=== PATIENT | male | born 1965 | race Caucasian/White ===

== ENCOUNTER 2018-08-08 11:38 | Emergency (ER) | payer OTHER ==
[2018-08-08 11:46] VITALS: BP 157/97
[2018-08-08] MEDS ORDERED: ACETAMINOPHEN 500 MG TAB PO ONE (11:49)
--- NOTE | 2018-08-08 11:50 | EDPHY ---
H & P Stated Complaint: pt standing on ladder approx 4 ft off ground, fell- hit back of head Time Seen by Provider: 08/08/18 11:47 HPI/ROS: HPI: This is a 53-year-old male who presents with Chief Complaint: pt standing on ladder approx 4 ft off ground, fell- hit back of head Location: Head, neck Quality: Injury Duration: Prior to arrival Signs and Symptoms: No bleeding, no radiation, no numbness, no weakness, no tingling, no incontinence, no decreased range of motion, + swelling, + pain, no fever Timing: Acute Severity: Moderate Context: Patient was in the emergency room repairing equipment while standing on a ladder. He reports that he missed the step approximately 4 ft in the air and fell directly off the ladder landing 1st on his buttocks and then hitting the back of his head. Denies LOC/dizziness/nausea/vomiting/amnesia. This was a witnessed fall and he was ambulatory at the scene. Patient has swelling noted to the back top of his head. Ice pack was applied. Patient reports no pain in his buttock or back region. He does report some mild midline discomfort in his cervical spine. Denies any cervical decreased range of motion or radiculopathy. Prior history of concussion in the past. Not on any blood thinners. Modifying Factors: Ice pack. Comment: ROS: A comprehensive 10 system review of systems is otherwise negative aside from elements mentioned in the history of present illness. MEDICAL/SURGICAL/SOCIAL HISTORY: Medical history: Generally healthy. Does not take any regular medications. Surgical history: Denies Social history: Employed. Never smoked. CONSTITUTIONAL: Well-developed, well-nourished, middle-aged white male, awake and alert, no obvious distress HEENT: 2 in annular contusion noted to the occipital area of the scalp-no skin breakdown; and normocephalic, PERRL, EOMI. no globe entrapment, no raccoon eyes. no Cueto signs.Tympanic membranes clear. No tympanic membrane rupture. Nares patent; no septal hematoma. Oropharynx clear, no exudate and moist pink mucosa. No malocclusion. no dental trauma. Airway patent. No lymphadenopathy. NECK: supple, mild C5-C7 midline tenderness, flexion 45 degrees, extension 45 degrees, right and left lateral flexion 45 degrees. No meningismus. Cardiovascular: Normal S1/S2, regular rate, regular rhythm, without murmur rub or gallop. PULMONARY/CHEST: Symmetrical and nontender. no crepitus. Clear to auscultation bilaterally. Good air movement. No accessory muscle usage. ABDOMEN: Soft, nondistended, nontender, no ecchymosis, no rebound, no guarding , no peritoneal signs, no masses or organomegaly. No CVAT. PELVIC: no pain with rocking; bilateral hips flexion 125 degrees, extension 30 degrees, with no pain internal rotation and no pain external rotation. BACK: No midline tenderness, no paraspinous spasm, deep tendon reflexes 2/2, no pain with straight leg raise EXTREMITIES: 2/2 pulses, no deformities, no clubbing, no cyanosis or edema. NEUROLOGICAL: no focal neuro deficits. GCS 15. SKIN: Warm and dry, no erythema. no rash. Good capillary refill. Source: Patient Exam Limitations: No limitations - Personal History Current Tetanus Diphtheria and Acellular Pertussis (TDAP): Yes - Medical/Surgical History Hx Asthma: No Hx Chronic Respiratory Disease: No Hx Diabetes: No Hx Cardiac Disease: No Hx Renal Disease: No Hx Cirrhosis: No Hx Alcoholism: No Hx HIV/AIDS: No Hx Splenectomy or Spleen Trauma: No Other PMH: denies - Social History Smoking Status: Never smoked Constitutional: Initial Vital Signs Temperature (C) 36.4 C 08/08/18 11:39 Heart Rate 70 08/08/18 11:39 Respiratory Rate 16 08/08/18 11:39 Blood Pressure 157/97 H 08/08/18 11:39 O2 Sat (%) 96 08/08/18 11:39 O2 Delivery Mode Room Air Allergies/Adverse Reactions: No Known Allergies Allergy (Unverified 08/08/18 12:02) Home Medications: Medication Instructions Recorded Cyclobenzaprine [Flexeril 10 MG 10 mg PO TID PRN #15 tab 08/08/18 (*)] Medical Decision Making - Diagnostics Imaging Results: Imaging Impressions Cervical Spine CT 08/08/18 11:49 Impression: No fracture or evidence of ligamentous injury. Mild multilevel degenerative disk disease. Findings and recommendations discussed with Megan Lantigua at 12:22 PM hour, . Final report concurs with initial preliminary interpretation. Head CT 08/08/18 11:49 Impression: Nothing acute intracranially. Findings and recommendations discussed with Megan Lantigua at 12:22 PM hour, . Final report concurs with initial preliminary interpretation. ED Course/Re-evaluation: Vital signs reviewed and stable upon arrival. Fall was witnessed and mechanical in nature. Due to mechanism of injury; head CT ordered. Due to midline tenderness; cervical CT ordered Given Tylenol 1000 mg and ice pack applied 1225: Called by Dr. Molina, who advised that head CT scan shows no acute intracranial process. Does show occipital contusion. Cervical CT scan shows no acute cervical process. Cervical degenerative changes noted. Will placed on concussion precautions and give medications for supportive measures. No signs of neurovascular compromise/tenting of skin/compartment syndrome/ extremities and joints examined above and below area of concern and are neurovascularly intact. This patient was seen under the supervision of my secondary supervising physician. I evaluated care for this patient independently. Discussed this patient with Dr. Knox. Differential Diagnosis: Head injury including but not limited to concussion, skull fracture, intraparenchymal contusion, subarachnoid, subdural and epidural hematoma. - Data Points Medications Given: Discontinued Medications Acetaminophen (Tylenol) 1,000 mg PO EDNOW ONE Stop: 08/08/18 11:50 Last Admin: 08/08/18 12:01 Dose: 1,000 mg Departure - Departure Disposition: Home, Routine, Self-Care Clinical Impression: Contusion of scalp, initial encounter Head injury, acute, without loss of consciousness Qualifiers: Encounter type: initial encounter Qualified Code(s): S09.90XA - Unspecified injury of head, initial encounter Cervical muscle strain Qualifiers: Encounter type: initial encounter Qualified Code(s): S16.1XXA - Strain of muscle, fascia and tendon at neck level, initial encounter Cervical spine degeneration Qualifiers: Spinal osteoarthritis complication: unspecified spinal osteoarthritis Qualified Code(s): M47.812 - Spondylosis without myelopathy or radiculopathy, cervical region Condition: Good Instructions: Cervical Strain (ED), Concussion (ED), Head Injury (ED), Contusion in Adults (ED) Additional Instructions: You sustained a closed head injury and it is recommended that you observe concussion precautions. Rest as much as possible until you are feeling better. Do not drive or operate heavy machinery until headache has resolved. Take Tylenol 650 mg every 4 hours and/or Ibuprofen 600 mg every 8 hours with food as needed for pain. Take Flexeril every 8 hr as needed for muscle spasms. Apply ice to scalp contusion for 30 minutes at a time; 2-3 times per day for the next 1-2 days. Follow up with Neurosurgery if you experience new or worsening pain, discoloration, numbness, tingling, or any other symptoms that concern you. The images obtained in the emergency department today demonstrate no evidence of an obvious fracture. Return to the ER immediately if you have progressive headaches, neurologic deficits, gait abnormality, visual disturbance, slurred speech, or any other symptom that concerns you. Work Related Injury: Date of Injury (if different from Date of Service): 08/08/18 Your work restrictions, if any, last only until the next business day. Formal evaluation for work restrictions beyond one day must be arranged through your employer's workman's compensation provider. Restrictions are noted below: No work until reexamined. Referrals: [facility],. [Clinic] - As per Instructions Alec Singh MD [Medical Doctor] - As per Instructions Aline Mejía MD [Medical Doctor] - As per Instructions Prescriptions: Cyclobenzaprine [Flexeril 10 MG (*)] 10 mg PO TID PRN #15 tab PRN Reason: Spasms
== END 2018-08-08 12:30 | disposition home or self-care (01) ==
DX: S09.90XA Unspecified injury of head, initial encounter (principal); S16.1XXA Strain of muscle, fascia and tendon at neck level, initial encounter; M47.812 Spondylosis without myelopathy or radiculopathy, cervical region; W11.XXXA Fall on and from ladder, initial encounter; Y93.89 Activity, other specified; Y92.238 Other place in hospital as the place of occurrence of the external cause; Y99.0 Civilian activity done for income or pay